=== PATIENT | female | born 1990 | race American Indian/Alaskan Native ===

== ENCOUNTER 2019-05-13 22:53 | Emergency (ER) | payer OTHER, MEDICAID ==
[2019-05-14] MEDS ORDERED: ACETAMINOPHEN 325 MG TAB PO ONE (00:55)
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
[2019-05-14 03:53] VITALS: BP 119/70
== END 2019-05-14 03:40 | disposition home or self-care (01) ==
LOC: ED 22:53
DX: S00.93XA Contusion of unspecified part of head, initial encounter (principal); M25.511 Pain in right shoulder; M54.9 Dorsalgia, unspecified; V49.49XA Driver injured in collision with other motor vehicles in traffic accident, initial encounter; Y93.89 Activity, other specified; Y92.410 Unspecified street and highway as the place of occurrence of the external cause; Y99.8 Other external cause status
CPT/HCPCS: 36415; 70450; 84702